=== PATIENT | female | born 1960 | race Caucasian/White ===

== ENCOUNTER 2019-03-22 08:13 | Emergency (ER) | payer OTHER ==
[~2019-03-22] VITALS: Ht 162.6 cm; Wt 94.3 kg
[2019-03-22 08:21] VITALS: BP 161/71; Ht 162.6 cm; Wt 94.3 kg
== END 2019-03-22 09:14 | disposition home or self-care (01) ==
LOC: ED 08:13
DX: R10.13 Epigastric pain (principal); R19.7 Diarrhea, unspecified; R11.10 Vomiting, unspecified; Z86.2 Personal history of diseases of the blood and blood-forming organs and certain disorders involving the immune mechanism

== ENCOUNTER 2019-05-13 07:08 | Emergency (ER) | payer OTHER ==
[~2019-05-13] VITALS: Ht 165.1 cm; Wt 95.3 kg
[2019-05-13 07:14] VITALS: Ht 165.1 cm; Wt 95.3 kg
[2019-05-13 08:25] VITALS: BP 138/64
== END 2019-05-13 08:25 | disposition home or self-care (01) ==
LOC: ED 07:08
DX: N39.0 Urinary tract infection, site not specified (principal)

== ENCOUNTER 2019-05-28 10:48 | Emergency (ER) | payer OTHER ==
[~2019-05-28] VITALS: Ht 160 cm; Wt 95.7 kg
[2019-05-28 11:00] VITALS: Ht 160 cm; Wt 95.7 kg
[2019-05-28 13:36] VITALS: BP 152/67
== END 2019-05-28 13:36 | disposition home or self-care (01) ==
LOC: ED 10:48
DX: S06.0X0A Concussion without loss of consciousness, initial encounter (principal); S01.01XA Laceration without foreign body of scalp, initial encounter; W01.0XXA Fall on same level from slipping, tripping and stumbling without subsequent striking against object, initial encounter; Y93.89 Activity, other specified; Y92.89 Other specified places as the place of occurrence of the external cause; Y99.8 Other external cause status
CPT/HCPCS: J2001

== ENCOUNTER 2019-05-30 08:41 | Emergency (ER) | payer OTHER ==
[~2019-05-30] VITALS: Ht 165.1 cm; Wt 95.7 kg
[2019-05-30 08:45] VITALS: BP 131/72; Ht 165.1 cm; Wt 95.7 kg
== END 2019-05-30 09:11 | disposition home or self-care (01) ==
LOC: ED 08:41
DX: S01.01XD Laceration without foreign body of scalp, subsequent encounter (principal); X58.XXXD Exposure to other specified factors, subsequent encounter

== ENCOUNTER 2019-06-07 07:44 | Emergency (ER) | payer OTHER ==
[~2019-06-07] VITALS: Ht 170.2 cm; Wt 96.6 kg
[2019-06-07 07:51] VITALS: BP 142/69
== END 2019-06-07 08:18 | disposition home or self-care (01) ==
LOC: ED 07:44
DX: S01.81XD Laceration without foreign body of other part of head, subsequent encounter (principal); W18.2XXD Fall in (into) shower or empty bathtub, subsequent encounter